=== PATIENT | female | born 1970 | race Caucasian/White ===

== ENCOUNTER 2020-04-29 06:42 | Inpatient (IN) ==
--- NOTE | 2020-04-17 16:29 | PAT Medication Instructions ---
Medication Instructions Date of Service April 17, 2020 Home Medications Cholesterol Plus 1,800 mg PO QAM calcium 1,000 mg PO QAM cholecalciferol (vitamin D3) 125 mcg PO QAM coQ10 (ubiquinol) 200 mg PO QAM cyanocobalamin (vitamin B-12) 1,000 mcg PO QAM diclofenac sodium 2 g TOPICAL QID PRN loratadine [Claritin] 10 mg PO QAM red yeast rice 600 mg PO QAM turmeric-herbal complex no.278 1 cap PO QAM ASK your surgeon for instructions diclofenac sodium 2 g TOPICAL QID PRN STOP taking 2 weeks before surgery If surgery is within 2 weeks, stop taking as soon as possible. Cholesterol Plus 1,800 mg PO QAM coQ10 (ubiquinol) 200 mg PO QAM red yeast rice 600 mg PO QAM turmeric-herbal complex no.278 1 cap PO QAM DO NOT take the morning of surgery calcium 1,000 mg PO QAM cholecalciferol (vitamin D3) 125 mcg PO QAM cyanocobalamin (vitamin B-12) 1,000 mcg PO QAM loratadine [Claritin] 10 mg PO QAM Other Notes Nothing to eat or drink after midnight. If you have any questions please call us at [phone] or [phone] or [phone] or [phone]
--- NOTE | 2020-04-18 12:43 | Anesthesiology Consultation ---
Date of Service April 18, 2020 Assessment & Plan (1) Encounter for pre-operative examination: COVID Status: As of 04/18 assessment, patient denies travel to endemic area, known exposure/sick contacts, or symptoms of COVID19. Patient instructed that they and their household members must follow strict social distancing guidelines, wear a mask in public and avoid travel/events/gatherings for 14 days prior to surgery. Preoperative COVID19 testing to be completed prior to surgery per surgeon's arrangements (04/24). Patient made aware to self-isolate as much as possible between COVID testing and surgery. Patient has a SCS. Aware to bring remote to the hospital with her on DOS. H/O PONV -- scopolamine patch ordered for DOS. Chart Review Chart Review: Acceptable Risk for Surgery and Patient seen in Pre Admission T esting Teaching & Discussion Instructed NPO after midnight before surgery, except medications with 15 cc of water. Medication instructions provided according to the PAT guidelines. History Surgery Operation Date: 04/29/20 07:00 Proposed Procedures p L4-L5 Decompression fusion, L5-S1 Hardware Removal Spinal Cord Monitoring - Daniel Chaves DO Height/Weight Height: 5 ft 3 in Weight: 68.6 kg Allergies Allergy/AdvReac Type Severity Reaction Status Date / Time adhesive tape Allergy Intermediate SKIN Verified 04/14/20 11:01 IRRIATION colchicine [From Mitigare] Allergy Intermediate STOMACH Verified 04/14/20 11:00 PAIN/URINARY RETENTION duloxetine [From Cymbalta] Allergy Intermediate DIZZINES/SINUS Verified 04/14/20 11:00 DRAINAGE ibuprofen Allergy Intermediate HIVES FROM Unverified 04/14/20 11:00 ADVIL/CAN TAKE IBUPROFEN Owjidec-Juu-Oqj Reductase Allergy Intermediate FLU LIKE Verified 04/14/20 11:00 Inhibitor SYMPTOMS/MUSCLE PAIN Sulfa (Sulfonamide Allergy Intermediate FLUSHED Unverified 04/14/20 11:00 Antibiotics) cefuroxime Allergy Unknown UNKNOWN Unverified 04/14/20 11:00 Medications Home Medications Medication Instructions Recorded Confirmed Last Taken Cholesterol Plus 1,800 mg PO QAM 04/14/20 04/14/20 Unknown calcium 1,000 mg PO QAM 04/14/20 04/14/20 Unknown cholecalciferol (vitamin D3) 125 mcg PO QAM 04/14/20 04/14/20 Unknown [Vitamin D3] coQ10 (ubiquinol) 200 mg PO QAM 04/14/20 04/14/20 Unknown cyanocobalamin (vitamin B-12) 1,000 mcg PO QAM 04/14/20 04/14/20 Unknown diclofenac sodium 2 g TOPICAL QID PRN 04/14/20 04/14/20 Unknown loratadine [Claritin] 10 mg PO QAM 04/14/20 04/14/20 Unknown red yeast rice 600 mg PO QAM 04/14/20 04/14/20 Unknown turmeric-herbal complex no.278 1 cap PO QAM 04/14/20 04/14/20 Unknown Past Medical History Medical History Anxiety Degenerative disc disease Erosive (osteo)arthritis BILAT. HANDS History of asthma HX ALLERGY INDUCED ASTHMA Hyperlipidemia Osteoarthritis Sciatica Spinal cord stimulator status PAIN STIMULATOR (WILL BRING REMOTE TO PAT APT) Exercise / Class Metabolic Activity II 4-5 Yardwork/Stairs/Walk up hill Past Family History Family History (Updated 04/14/20 @ 11:13 by Marcella Mendoza RN) Other No family history of adverse response to anesthesia Past Surgical History Surgical History History of bladder surgery BLADDER SLING History of breast biopsy X 2 (BENIGN) History of carpal tunnel release LEFT History of ear surgery RT EAR "A LITTLE THING REMOVED" History of endometrial ablation History of hysterectomy History of tonsillectomy and adenoidectomy Nausea and vomiting after administration of anesthetic agent Past Anesthesia History No Hx of Anesthesia Complications (other than PONV) and No Family Hx of Anesthesia Complications History of PONV No Hx of Motion Sickness and History of PONV (after hyster and SCS implantation) Social History Smoking Status: Never smoker Do You Dip or Chew Tobacco: No Hx Alcohol Use: Yes Alcohol type: hard liquor alcohol intake frequency: a few times a month Alcohol Intake Frequency Comment: MIXED DRINKS substance use type: does not use Review of Systems Pt denies any recent chest pain, shortness of breath, palpitations, cough, fever, URI, or uncontrolled acid reflux. Physical Exam Vital Signs BP: 145/81 P: 90bpm SPO2: 99% RA T: 97.9 F R: 16 ENMT Mouth: no dental restorations, no chipped teeth and no loose teeth Thyromental Distance: < 3.5 Finger Breadths (3) Mallampati Class: III Neck normal visual inspection; neck extension not limited Respiratory normal respiratory effort, lungs clear to auscultation Cardiovascular RRR, no murmur, no edema (borderline tachy) Testing Laboratory Results 04/18/20 13:27 04/18/20 13:27 PT 10.2 Seconds (9.0-12.0) 04/18/20 13:27 INR 1.0 (0.9-1.1) 04/18/20 13:27 APTT 26.4 Seconds (21.0-31.0) 04/18/20 13:27 Urine Color Yellow 04/18/20 13:27 Urine Appearance Clear (Clear) 04/18/20 13:27 Urine pH 8.0 (4.5-7.5) H 04/18/20 13:27 Ur Specific [place] 1.015 (1.000-1.030) 04/18/20 13:27 Urine Protein Negative (Negative) 04/18/20 13:27 Urine Glucose (UA) Negative (Negative) 04/18/20 13:27 Urine Ketones Negative (Negative) 04/18/20 13:27 Urine Nitrite Negative (Negative) 04/18/20 13:27 Ur Leukocyte Esterase Negative (Negative) 04/18/20 13:27 Blood Type B Positive 04/18/20 13:27 Antibody Screen NEGATIVE 04/18/20 13:27 Electrocardiogram Date: 04/18/20 Findings: + NSR @ (77bpm) Chest X-Ray Date: 04/18/20 Findings: + NAD
--- NOTE | 2020-04-18 13:47 | XRay Report ---
XR chest Pre-admission PA/Lat CLINICAL HISTORY: Preoperative evaluation. COMPARISON STUDY: Chest radiograph October 26, 2013. FINDINGS: Incidental note is made of spinal electrodes. Lung volumes are normal. Lungs are clear. The re is no pneumothorax or pleural effusion. Cardiac size is normal. Mediastinal contours are normal. T here is no evidence for pulmonary edema. IMPRESSION: No acute cardiopulmonary findings. ACT 112: Negative or not required by law. Electronically signed by: Sohail Jacobs M.D. 04/18/2020 1:46 PM
[2020-04-18 13:59] LABS: Basophils # (auto) 0.05 K/uL (0-0.2); Basophils % (auto) 0.8 %; Eosinophils # (auto) 0.04 K/uL (0-0.5); Eosinophils % (auto) 0.7 %; Hematocrit (blood only) 39.6 % (37-47); Hemoglobin 13.5 g/dL (12.0-16.0); Lymphocytes # (auto) 1.73 K/uL (1.2-3.4); Lymphocytes % (auto) 29.1 %; Mean Corpuscular Hemoglobin 30.4 pg (25-34); Mean Corpuscular Hgb Conc 34.1 g/dL (32-36); Mean Corpuscular Volume 89.2 fL (80-100); Mean Platelet Volume 9.5 fL (7.4-10.4); Monocytes # (auto) 0.39 K/uL (0.11-0.59); Monocytes % (auto) 6.6 %; Neutrophils # (auto) 3.74 K/uL (1.4-6.5); Neutrophils % (auto) 62.8 %; Platelet Count 345 K/uL (130-400); RDW Coefficient of Variation 12.7 % (11.5-14.5); RDW Standard Deviation 41.5 fL (36.4-46.3); Red Blood Count 4.44 M/uL (4.2-5.4); White Blood Count 5.95 K/uL (4.8-10.8)
--- NOTE | 2020-04-18 14:06 | Electrocardiogram Report ---
Test Reason : Blood Pressure : / mmHG Vent. Rate : 077 BPM Atrial Rate : 077 BPM P-R Int : 144 ms QRS Dur : 088 ms QT Int : 374 ms P-R-T Axes : 059 080 058 degrees QTc Int : 423 ms Normal sinus rhythm Normal ECG When compared with ECG of 26-OCT-2013 10:19, No significant change was found Confirmed by Rory Najera ([id number]) on 04/18/2020 2:06:11 PM Referred By: Daniel Chaves Confirmed By:Rory Najera
[2020-04-18 14:08] LABS: Partial Thromboplastin Time 26.4 Seconds (21.0-31.0); Prothrombin Time 10.2 Seconds (9.0-12.0)
[2020-04-18 14:09] LABS: BUN Creatinine Ratio 10.1 (10-20); Calcium 9.7 mg/dl (8.5-10.1); Creatinine Clr Calc Pharmacy 77.3 ml/min; Est GFR (African American) 98.9; Est GFR (Non-African American) 85.4; Potassium 4.3 mmol/L (3.5-5.1)
[2020-04-18 15:45] LABS: Appearance Urine Clear (Clear); Bilirubin Urine Negative (Negative); Blood Urine Negative (Negative); Color Urine Yellow; Glucose Urine UA Negative (Negative); Ketones Urine Negative (Negative); Leukocyte Esterase Urine Negative (Negative); Nitrite Urine Negative (Negative); Protein Urine Negative (Negative); Specific Gravity Urine 1.015 (1.000-1.030); Urobilinogen Urine Negative (Negative)
[~2020-04-29 06:42] MED LIST: ACETAMINOPHEN 500 MG TAB PO SCH; CLINDAMYCIN 600 MG/54 ML BAG IV SCH; CeleBREX 200 MG CAP PO SCH; GABAPENTIN 900 MG DOSE PO SCH; SCOPOLAMINE 1 MG TDSY TD SCH; ceFAZolin 1000MG 1,000 MG/7.5 ML SYR IV SCH
--- NOTE | 2020-04-29 08:01 | History & Physical Bridge Note ---
Date of Service April 29, 2020 History & Physical Bridge Note I have examined the patient, reviewed the History & Physical and in the interval since the performance of the History & Physical I have noted the following changes of clinical significance: no changes noted
--- NOTE | 2020-04-29 08:02 | History & Physical Report ---
Date of Service April 29, 2020 Assessment & Plan (1) Neurogenic claudication due to lumbar spinal stenosis: Admission and Anticipated Discharge Date Admission Date: L4-5 decompression fusion, L5-S1 hardware removal History of Present Illness Chief Complaint: Chronic back and bilateral leg pain Primary Care Provider: Neftali Driver DO This is a 49-year-old female who presents with chronic back and bilateral leg pain. After failing course of nonoperative care she is here for surgical invention. Allergies Allergy/AdvReac Type Severity Reaction Status Date / Time adhesive tape Allergy Intermediate SKIN Verified 04/29/20 07:10 IRRIATION colchicine [From Mitigare] Allergy Intermediate STOMACH Verified 04/29/20 07:10 PAIN/URINARY RETENTION duloxetine [From Cymbalta] Allergy Intermediate DIZZINES/SINUS Verified 04/29/20 07:10 DRAINAGE ibuprofen Allergy Intermediate HIVES FROM Unverified 04/29/20 07:10 ADVIL/CAN TAKE IBUPROFEN Ohelung-Ewy-Grm Reductase Allergy Intermediate FLU LIKE Verified 04/29/20 07:10 Inhibitor SYMPTOMS/MUSCLE PAIN Sulfa (Sulfonamide Allergy Intermediate FLUSHED Unverified 04/29/20 07:10 Antibiotics) cefuroxime Allergy Unknown UNKNOWN Unverified 04/29/20 07:10 Home Medications Medication Instructions Recorded Confirmed Type Cholesterol Plus 1,800 mg PO QAM 04/14/20 04/29/20 History calcium 1,000 mg PO QAM 04/14/20 04/29/20 History cholecalciferol (vitamin D3) 125 mcg PO QAM 04/14/20 04/29/20 History [Vitamin D3] coQ10 (ubiquinol) 200 mg PO QAM 04/14/20 04/29/20 History cyanocobalamin (vitamin B-12) 1,000 mcg PO QAM 04/14/20 04/29/20 History diclofenac sodium 2 g TOPICAL QID PRN 04/14/20 04/29/20 History loratadine [Claritin] 10 mg PO QAM 04/14/20 04/29/20 History red yeast rice 600 mg PO QAM 04/14/20 04/29/20 History turmeric-herbal complex no.278 1 cap PO QAM 04/14/20 04/29/20 History docusate calcium [Stool Softener 240 mg PO BID 04/29/20 04/29/20 History (docusate breezy)] Past Med/Surg History Medical History Anxiety Degenerative disc disease Erosive (osteo)arthritis BILAT. HANDS History of asthma HX ALLERGY INDUCED ASTHMA Hyperlipidemia Osteoarthritis Sciatica Spinal cord stimulator status PAIN STIMULATOR (WILL BRING REMOTE TO ALLA GARCIA) Surgical History History of bladder surgery BLADDER SLING History of breast biopsy X 2 (BENIGN) History of carpal tunnel release LEFT History of ear surgery RT EAR "A LITTLE THING REMOVED" History of endometrial ablation History of hysterectomy History of tonsillectomy and adenoidectomy Nausea and vomiting after administration of anesthetic agent Family History (Updated 04/14/20 @ 11:13 by Marcella Mendoza RN) Other No family history of adverse response to anesthesia Social History Smoking Status: Never smoker Second Hand Exposure: Yes ( A CHILD); Do You Dip or Chew Tobacco: No; Hx Alcohol Use: Yes Alcohol type: hard liquor Preferred Language: Gu[place]ian Break Off Worker Required: No Beliefs That Will Affect Care: None Current Living Situation: Spouse Feels Safe at Home: Yes Safety Concerns: Feels Safe At This Time Assistive Devices: Contacts and Glasses Physical Exam Physical Exam: Patient is alert and oriented Heart regular in rhythm Lungs clear to auscultation Results & Data ([facility]) Vital Signs (Past 12 Hours) Vital Signs Temp Pulse Resp BP Pulse Ox 04/29/20 07:15 37 C 99 H 16 157/94 H 99
[2020-04-29] MEDS ORDERED: CLINDAMYCIN 600 MG/54 ML D5W IV ONE (08:08)
[2020-04-29] MEDS ORDERED: HYDROmorphone INJ 2 MG/ML SYR/VIAL IV PRN (08:09)
[2020-04-29] MEDS ORDERED: ONDANSETRON INJ 2 MG/ML 2 ML VIAL IV PRN ×2 (08:09→11:54)
[2020-04-29] MEDS ORDERED: ePHEDrine sulfate 50 MG/ML AMP IV PRN (08:09)
[2020-04-29] MEDS ORDERED: PROMETHAZINE HCL 12.5 MG in SODIUM CHLORIDE 0.9% 50 ML IV PRN ×2 (08:09→11:54)
[2020-04-29] MEDS ORDERED: ATROPINE SULFATE 0.1 MG/ML 10ML SYR IV PRN (08:09)
[2020-04-29] MEDS ORDERED: fentaNYL citrate 100 MCG/2 ML VIAL IV PRN (08:09)
[2020-04-29] MEDS ORDERED: MIDAZOLAM HCL 1 MG/ML 2ML VIAL ONE (08:20)
[2020-04-29] MEDS ORDERED: fentaNYL citrate 100 MCG/2 ML VIAL ONE (08:20)
[2020-04-29] MEDS ORDERED: PROPOFOL IV EMULSION 10 MG/ML 20 ML VIAL IV ONE (08:21)
[2020-04-29] MEDS ORDERED: ONDANSETRON INJ 2 MG/ML 2 ML VIAL ONE (08:21)
[2020-04-29] MEDS ORDERED: ROCURONIUM BROMIDE 10 MG/ML 5 ML VIAL IV ONE (08:21)
[2020-04-29] MEDS ORDERED: BACITRACIN INJ 50,000 UNIT VIAL ONE (08:21)
[2020-04-29] MEDS ORDERED: LIDOCAINE HCL 2% 2 ML VIAL/AMP(20MG/ML) INFIL ONE (08:21)
[2020-04-29] MEDS ORDERED: BUPIVACAINE/EPINEPHRINE 0.5% MPF 1:200,000 30 ML VIAL ONE (08:21)
[2020-04-29] MEDS ORDERED: DEXAMETHASONE SOD INJ 4 MG/ML VIAL ONE (08:22)
[2020-04-29] MEDS ORDERED: HYDROmorphone INJ 2 MG/ML SYR/VIAL ONE (09:30)
[2020-04-29] MEDS ORDERED: LACTATED RINGER'S 1,000 ML IV SCH (09:30)
[2020-04-29] MEDS ORDERED: METOCLOPRAMIDE HCL INJ 5 MG/ML 2 ML VIAL ONE (09:35)
[2020-04-29] MEDS ORDERED: diphenhydrAMINE 50 MG/ML VIAL ONE (09:36)
[2020-04-29] MEDS ORDERED: NEOSTIGMINE METHYLSULFATE 1 MG/ML 10ML VIAL ONE (10:02)
[2020-04-29] MEDS ORDERED: ePHEDrine sulfate 50 MG/ML AMP ONE (10:02)
[2020-04-29] MEDS ORDERED: PHENYLEPHRINE HCL 10 MG/ML VIAL ONE (10:02)
[2020-04-29] MEDS ORDERED: GLYCOPYRROLATE 0.2 MG/ML VIAL ONE (10:02)
[2020-04-29] MEDS ORDERED: SODIUM CHLORIDE 0.9% INJ 10 ML VIAL ONE (10:02)
--- NOTE | 2020-04-29 10:21 | Operative Report ---
Post Operative Report Pre & Post Diagnosis Operation Date: 04/29/20 08:20 Pre-Op Diagnosis: Neurogenic claudication due to lumbar spinal stenosis L4-5 Spondylolisthesis L4-5 Post-Op Diagnosis: Neurogenic claudication due to lumbar spinal stenosis L4-5 Spondylolisthesis L4-5 I identified the patient and participated in the time-out.: Yes Procedure Operation Date: 04/29/20 08:20 Actual procedure #1 removal of instrumentation L5-S1. #2 exploration of fusion L5 extremity #3 lumbar decompression with bilateral medial facetectomies and foraminotomies L3-4 and L4-5 per #4 posterior spinal fusion L4-5. #5 placement of posterior instrumentation L4-5 per #6 interbody fusion L4-5 per #7 placement peek cage 10 x 22 mm at L4-5 per #8 placement of locally harvested morselized autograft in the posterior gutters. #9 placement infuse collagen sponge, master graft in the posterior lateral gutters and ostial amp interbody space. Surgeon Daniel Chaves, Casing In Line Setter Eladia Menendez Estimated Blood Loss 100 Findings Consistent with Post-Op Diagnosis Specimens None Indications This is a 49-year-old female who presents with above-mentioned diagnosis after failing course of nonoperative care she is here for surgical invention. Description of Procedure Patient was met with identified informed consent obtained. Patient was then taken to the operative suite underwent a patient placed in a prone position Mushtaq table top Ramses frame. All bony prominences well-padded eyes inspected to ensure no external pressure placed upon the. This point the lumbar spine was prepped and draped in a sterile fashion. Sharp dissection with the assistance of Bovie cautery was performed down to and exposing the lamina and transverse processes of L4 and the instrumentation at L5 and S1 levels bilaterally. Then proceeded to remove the hardware bilaterally exploring the fusion mass noting it to be mature and intact. Then performed a complete laminectomy of L4 partial laminectomy of L3 including bilateral medial facetectomies and foraminotomies addressing severe spinal stenosis. Pedicle screws were then placed in L4 and L5 bilaterally with the assistance of fluoroscopy and appropriately sized niecy placed. By way of a transforaminal approach and left complete discectomy was performed endplates curetted to subcortical bleeding bone and a 10 x 22 mm peek cage filled with osteobone graft tapped in position. The rods were then locked into final position bilaterally. The transverse processes of L4 and L5 burred to subcortical bleeding bone. Infuse collagen sponge master graft local autograft was placed in the posterior lateral gutters. 15 round JULIAN drain inserted. The incision was then closed with 1 Vicryl to fascia 2-0 Vicryl subcutaneously and 4 Monocryl for final skin closure. Steri-Strip sterile dressings placed. Patient will continue PACU stable condition. Please note spinal cord monitoring was utilized at the procedure no changes noted. Lastly Eladia Menendez was present throughout the entire procedure involved in patient positioning complex portions of the surgery and final skin closure. I attest to the content of the Intraoperative Record and any orders documented therein. Any exceptions are noted below.
--- NOTE | 2020-04-29 10:27 | Fluoroscopy Report ---
FL lumbar spine 2-3V CLINICAL HISTORY: L4-L5 DECOMP/FUSION L5-S1 HW REMOVAL COMPARISON STUDY: Lumbar spine CT April 24, 2020. FLUOROSCOPY TIME: 12 seconds. FLUOROSCOPIC IMAGES: 2 FINDINGS: Previous L5-S1 discectomy with interbody spacer placement as noted. The previous hardware a t the L5 and S1 levels has been removed. Interval L4-L5 discectomy with interbody spacer placement as noted. There is a posterior decompression with bilateral pedicle screws at the L4 and L5 levels. The hardware is intact. IMPRESSION: Hardware removal. Interval L4-L5 discectomy, posterior decompression and bilateral pedicl e screw fusion. ACT 112: Negative or not required by law. Electronically signed by: Sohail Jacobs M.D. 04/29/2020 10:26 AM
[2020-04-29] MEDS ORDERED: FLOSEAL HEMOSTATIC MATRIX 10ML TOP ONE (11:40)
[2020-04-29] MEDS ORDERED: diphenhydrAMINE Capsule 25 MG CAP PO PRN (11:54)
[2020-04-29] MEDS ORDERED: FAMOTIDINE 20 MG TAB PO PRN (11:54)
[2020-04-29] MEDS ORDERED: HYDROmorphone INJ 1 MG/ML SYRINGE IV PRN (11:54)
[2020-04-29] MEDS ORDERED: ONDANSETRON 4 MG OD TAB PO PRN (11:54)
[2020-04-29] MEDS ORDERED: DO NOT ADMINISTER PNEUMOCOCCAL VACCINE PRN (11:54)
[2020-04-29] MEDS ORDERED: DO NOT ADMINISTER FLU VACCINE PRN (11:54)
[2020-04-29] MEDS ORDERED: HYDROmorphone INJ 0.5 MG/0.5 ML SYR IV PRN (11:54)
[2020-04-29] MEDS ORDERED: hydrOXYzine HCl 25 MG TAB PO PRN (11:54)
[2020-04-29] MEDS ORDERED: traMADol HCL 50 MG TABLET PO PRN (11:54)
[2020-04-29] MEDS ORDERED: ALUMINUM/MAGNESIUM SUSP 30 ML UDC PO PRN (11:54)
[2020-04-29] MEDS ORDERED: SOD PHOSPHATE/SOD BIPHOSPHATE ENEMA 132 ML BTL PR PRN (11:54)
[2020-04-29] MEDS ORDERED: ACETAMINOPHEN 500 MG TAB PO PRN (11:54)
[2020-04-29] MEDS ORDERED: NALOXONE HCL 0.4 MG/1 ML VIAL/CARP IV PRN (11:54)
[2020-04-29] MEDS ORDERED: MAGNESIUM HYDROXIDE SUSP 30 ML UDC PO PRN (11:54)
[2020-04-29] MEDS ORDERED: LORazepam 0.5 MG TAB PO PRN (11:54)
[2020-04-29] MEDS ORDERED: METOCLOPRAMIDE HCL INJ 5 MG/ML 2 ML VIAL IV PRN (11:54)
[2020-04-29] MEDS ORDERED: ACETAMINOPHEN 1,000 MG/100 ML VIAL IV PRN (11:54)
[2020-04-29] MEDS ORDERED: LORazepam 0.5 MG/1 ML VIAL IV PRN (11:54)
--- NOTE | 2020-04-29 11:57 | Anesthesiology Progress Note ---
Date of Service April 29, 2020 Anesthesia Post Procedure Vital Signs Vital Signs: Temp Pulse Pulse Resp BP Pulse Ox 04/29/20 11:35 87 15 129/72 95 04/29/20 11:20 86 16 128/67 94 04/29/20 11:05 36.1 C L 99 H 14 136/77 97 04/29/20 10:55 79 16 130/77 100 04/29/20 10:45 76 18 119/68 98 04/29/20 10:36 36.1 C L 88 16 118/72 95 04/29/20 07:15 37 C 99 H 16 157/94 H 99 Pain Intensity Posterior Back: Pain Intensity: 7 Transfer of Care Handoff Completed per policy Notes Mental Status: alert / awake / arousable and participated in evaluation Patient Amnestic to Procedure: Yes Nausea / Vomiting: adequately controlled Pain: adequately controlled Airway Patency, RR, SpO2: stable & adequate BP & HR: stable & adequate Hydration State: stable & adequate Anesthetic Complications: no major complications apparent and Pt Satisfied with anesthetic care
[2020-04-29] MEDS: LACTATED RINGER'S 1,000 ML IV SCH (14:06)
[2020-04-29] MEDS: KETOROLAC TROMETHAMINE 15 MG/ML VIAL IV SCH ×2 (14:06→20:28)
--- NOTE | 2020-04-29 14:47 | Internal Medicine Consult Note ---
Date of Consultation April 29, 2020 Assessment & Plan (1) Spondylolisthesis of lumbar region: Impression: Pleasant 49-year-old female with a failed conservative treatment for L4-L5 spondylolisthesis with mild stenosis. She underwent elective L4-L5 discectomy with fusion and cage insertion today with Dr. Chaves. 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 She denies any shortness of breath or wheezes No bronchospasm appreciated on exam The patient does develop bronchospasm or shortness of breath would prescribe duo nebs every 3 hours as needed No indication for empiric treatment at this time (4) Neurogenic claudication due to lumbar spinal stenosis: Hopefully this is resolved secondary to the surgery At this time it does not appear the patient is on any outpatient gabapentin PPMP reviewed -2 prescriptions one for Hycodan 02/10/2020 and 1 for OxyContin 12/12/2018 Further pain management per orthopedics (5) DVT prophylaxis: No chemical prophylaxis secondary to acute surgery of lumbar region of the spine Consider KAYLIE duran and SCDs while inpatient Increase ambulation per orthopedic orders Thank you very much for including us in the care of this patient. Please refer to Dr. Coker's addendum for further recommendations and corrections Supervising Physician Co-Signing Physician Notes History and physical exam performed History as detailed by Dudley Samano, notable for 49 year old woman with h/o DDD, HLD who had elective L4-5 fusion today after failed conservative therapy. Physical exam notable for grogginess (still recovering from anesthesia) but able to answer questions appropriately, clean dressing over surgical site with drain in situ. -Neurogenic claudication due to lumbar spinal stenosis S/P L4-5 decompression fusion , hardware removal today Pain control per primary ortho team Get CBC in AM Asthma currently stable Reports hyperlipidemia and h/o statin intolerance Agree with other plans as detailed above Thank you for the consult. Will continue to follow with you while inpatient History of Present Illness Reason for Consultation: Medical management Attending Physician: Daniel Chaves DO History of Present Illness Attending: Dr. Coker This is a 49-year-old female. She has a past medical history of degenerative disc disease, hyperlipidemia, seasonal allergies, allergy induced asthma. She denies any history of tobacco abuse, hypertension, COPD, emphysema, cardiopulmonary disease, kidney disease. Surgical history includes recent hysterectomy with unilateral salpingo-oophorectomy. The patient states that she has had ongoing problems with back pain. She has been following with Dr. Chaves after failing conservative treatment with anti- inflammatories, muscle relaxants, and physical therapy. She was scheduled for e lective surgery and underwent L4-L5 fusion with cage placement today. She had an EBL of 100 mL. She had no significant complications with her surgery. She states that this time that her pain is generally controlled. She has no shortness of breath. No chest pain. No difficulty with breathing. She denies any abdominal pain. She has no recent illness. She tested negative for COVID- 19 prior to her surgery. She is still quite groggy from anesthesia but otherwise has no acute complaints. Allergies Allergy/AdvReac Type Severity Reaction Status Date / Time adhesive tape Allergy Intermediate SKIN Verified 04/29/20 07:10 IRRIATION colchicine [From Mitigare] Allergy Intermediate STOMACH Verified 04/29/20 07:10 PAIN/URINARY RETENTION duloxetine [From Cymbalta] Allergy Intermediate DIZZINES/SINUS Verified 04/29/20 07:10 DRAINAGE ibuprofen Allergy Intermediate HIVES FROM Unverified 04/29/20 07:10 ADVIL/CAN TAKE IBUPROFEN Yshyliz-Wmb-Fsf Reductase Allergy Intermediate FLU LIKE Verified 04/29/20 07:10 Inhibitor SYMPTOMS/MUSCLE PAIN Sulfa (Sulfonamide Allergy Intermediate FLUSHED Unverified 04/29/20 07:10 Antibiotics) cefuroxime Allergy Unknown UNKNOWN Unverified 04/29/20 07:10 Home Medications Medication Instructions Recorded Confirmed Type Cholesterol Plus 1,800 mg PO QAM 04/14/20 04/29/20 History calcium 1,000 mg PO QAM 04/14/20 04/29/20 History cholecalciferol (vitamin D3) 125 mcg PO QAM 04/14/20 04/29/20 History [Vitamin D3] coQ10 (ubiquinol) 200 mg PO QAM 04/14/20 04/29/20 History cyanocobalamin (vitamin B-12) 1,000 mcg PO QAM 04/14/20 04/29/20 History diclofenac sodium 2 g TOPICAL QID PRN 04/14/20 04/29/20 History loratadine [Claritin] 10 mg PO QAM 04/14/20 04/29/20 History red yeast rice 600 mg PO QAM 04/14/20 04/29/20 History turmeric-herbal complex no.278 1 cap PO QAM 04/14/20 04/29/20 History docusate calcium [Stool Softener 240 mg PO BID 04/29/20 04/29/20 History (docusate breezy)] Patient History Medical History (Updated 04/29/20 @ 15:21 by Dudley Ramirez PA-C) Anxiety Degenerative disc disease Erosive (osteo)arthritis BILAT. HANDS History of asthma HX ALLERGY INDUCED ASTHMA Hyperlipidemia Osteoarthritis Sciatica Spinal cord stimulator status PAIN STIMULATOR (WILL BRING REMOTE TO [facility]) Surgical History (Updated 04/29/20 @ 15:29 by Dudley Ramirez PA-C) H/O hysterectomy with unilateral oophorectomy History of bladder surgery BLADDER SLING History of breast biopsy X 2 (BENIGN) History of carpal tunnel release LEFT History of ear surgery RT EAR "A LITTLE THING REMOVED" History of endometrial ablation History of tonsillectomy and adenoidectomy Nausea and vomiting after administration of anesthetic agent S/P insertion of spinal cord stimulator Family History Other No family history of adverse response to anesthesia Social History Smoking Status: Never smoker Second Hand Exposure: Yes ( A CHILD); Do You Dip or Chew Tobacco: No; Hx Alcohol Use: No Hx Substance Use: No Preferred Language: French Communication Ability: Effective Cigar Packing Examiner Required: No Beliefs That Will Affect Care: None marital status: Current Living Situation: Spouse Other Information That Helps Us Care for You: No Feels Safe at Home: Yes Safety Concerns: Feels Safe At This Time Assistive Devices: None Review of Systems Review of Systems: All systems reviewed & are unremarkable except as noted in HPI & below Physical Exam Physical Exam: GENERAL : No acute distress. Somewhat groggy. Answers questions appropriately. EYES: No icterus, gaze conjugate NOSE: No evidence of epistaxis MOUTH: No lesions or candidiasis NECK: Supple LUNGS: CTA B/L, no wheezes, rales or rhonchi HEART: Regular, rate controlled ABDOMEN: Soft, NT, ND, BS Present EXTREMITIES: No LE edema, pedal pulses intact NEURO: A&OX3. Able to move bilateral feet and toes. Good tactile sensation of lower extremities. Results & Data ([facility]) Vital Signs (Past 12 Hours) Vital Signs Temp Pulse Pulse Resp BP Pulse Ox 04/29/20 13:58 35.6 C L 88 16 126/77 93 04/29/20 12:50 36.3 C L 73 16 106/66 96 04/29/20 12:20 36.3 C L 92 H 16 122/80 93 04/29/20 12:02 36.3 C L 81 16 127/80 93 04/29/20 11:54 36.3 C L 88 16 127/80 93 04/29/20 11:35 87 15 129/72 95 04/29/20 11:20 86 16 128/67 94 04/29/20 11:05 36.1 C L 99 H 14 136/77 97 04/29/20 10:55 79 16 130/77 100 04/29/20 10:45 76 18 119/68 98 04/29/20 10:36 36.1 C L 88 16 118/72 95 04/29/20 07:15 37 C 99 H 16 157/94 H 99 Laboratory Results 04/18/20 13:27 04/18/20 13:27 Diagnostic Findings FL lumbar spine 2-3V CLINICAL HISTORY: L4-L5 DECOMP/FUSION L5-S1 HW REMOVAL COMPARISON STUDY: Lumbar spine CT April 24, 2020. FLUOROSCOPY TIME: 12 seconds. FLUOROSCOPIC IMAGES: 2 FINDINGS: Previous L5-S1 discectomy with interbody spacer placement as noted. The previous hardware at the L5 and S1 levels has been removed. Interval L4-L5 discectomy with interbody spacer placement as noted. There is a posterior decompression with bilateral pedicle screws at the L4 and L5 levels. The hardware is intact. IMPRESSION: Hardware removal. Interval L4-L5 discectomy, posterior decompression and bilateral pedicle screw fusion. Electronically signed by: Sohail Jacobs M.D. 04/29/2020 10:[address] lumbar spine wo con CT DOSE: 656.21 mGy.cm CLINICAL HISTORY: LUMBAR ADJACENT SEGMENT DISEASE,SPONYLOLITHESIS BACK PAIN TECHNIQUE: Helical images were acquired in transverse plane. Reformatted sagittal and coronal images were reviewed. A dose lowering technique was utilized adhering to the principles of ALARA. CONTRAST: No contrast was administered COMPARISON STUDY: X-ray study dated 11/02/2013 FINDINGS: A radiopaque densities visualized at the T11 level within the abdomen, are incompletely evaluated but likely representing pill fragments. There is visualization of a spinal electrode which enters the canal at the T12- L1 level. L1-2 level: There is no evidence of significant disc bulge or focal herniation. There is no evidence of spinal or foraminal stenosis. L2-3 level: There is no evidence of significant disc bulge or focal herniation. There is no evidence of spinal or foraminal stenosis. L3-4 level: There is a minimal circumferential disc bulge. There is no significant spinal or foraminal stenosis L4-5 level: There is marked desiccation of the disc. There is a grade 1 spondylolisthesis of L4 and L5. There is discogenic and plate sclerosis. An L5 posterior laminectomy. There is mild spinal canal narrowing. There is no significant foraminal narrowing. L5-S1 level: There are postsurgical changes of a discectomy and interbody fusion. There are postlaminectomy changes. There is post surgical changes of a fusion with posterior pedicle screw fixation. The S1 pedicle screws extend anterior to the anterior cortex of the S1 vertebra bilaterally. IMPRESSION: 1. Postsurgical changes of discectomy, interbody fusion, and posterior laminectomy and spinal fusion at the L5-S1 level 2. Marked disc degeneration at the L4-5 level. Grade 1 spondylolisthesis of L4 on L5. Mild spinal canal narrowing. 3. No acute fractures identified. Electronically signed by: Darrin Zambrano M.D. 04/24/2020 8:28 AM
[2020-04-29] MEDS: CLINDAMYCIN 600 MG in DEXTROSE 5% 50 ML IV SCH ×2 (15:28→23:46)
[2020-04-29] MEDS: DOCUSATE SODIUM/SENNA 50/8.6MG TAB PO SCH (20:29)
[2020-04-30] MEDS: LACTATED RINGER'S 1,000 ML IV SCH (01:59)
[2020-04-30] MEDS: KETOROLAC TROMETHAMINE 15 MG/ML VIAL IV SCH ×2 (02:01→09:07)
[2020-04-30 06:04] LABS: Basophils # (auto) 0.01 K/uL (0-0.2); Basophils % (auto) 0.1 %; Eosinophils # (auto) 0.02 K/uL (0-0.5); Eosinophils % (auto) 0.2 %; Hematocrit (blood only) 28.1 % (37-47); Hemoglobin 9.5 g/dL (12.0-16.0); Immature Granulocytes # (auto) 0.03 K/uL (0.00-0.02); Immature Granulocytes % (auto) 0.3 %; Lymphocytes # (auto) 2.56 K/uL (1.2-3.4); Lymphocytes % (auto) 23.7 %; Mean Corpuscular Hgb Conc 33.8 g/dL (32-36); Mean Corpuscular Volume 88.6 fL (80-100); Mean Platelet Volume 9.4 fL (7.4-10.4); Monocytes # (auto) 0.94 K/uL (0.11-0.59); Monocytes % (auto) 8.7 %; Neutrophils # (auto) 7.23 K/uL (1.4-6.5); Platelet Count 228 K/uL (130-400); RDW Coefficient of Variation 12.5 % (11.5-14.5); RDW Standard Deviation 40.7 fL (36.4-46.3); Red Blood Count 3.17 M/uL (4.2-5.4); White Blood Count 10.79 K/uL (4.8-10.8)
[2020-04-30 06:46] LABS: BUN Creatinine Ratio 16.8 (10-20); Creatinine Clr Calc Pharmacy 106.2 ml/min; Est GFR (African American) 123.7; Est GFR (Non-African American) 106.7; Potassium 3.7 mmol/L (3.5-5.1)
[2020-04-30] MEDS ORDERED: [UNRECOGNIZED DRUG - OTHER] PO SCH (09:00)
[2020-04-30] MEDS ORDERED: NON-FORMULARY MEDICATION (Coq10 (Ubiquinol) 200 mg Capsule) PO SCH (09:00)
[2020-04-30] MEDS: LORATADINE 10 MG TAB PO SCH (09:07)
[2020-04-30] MEDS: CHOLECALCIFEROL 1,000 UNITS 25 MCG TAB PO SCH (09:08)
[2020-04-30] MEDS: CYANOCOBALAMIN 500 MCG TABLET (VITAMIN B-12) PO SCH (09:08)
[2020-04-30] MEDS: CALCIUM CARBONATE 500 MG CHEWABLE TAB PO SCH (09:09)
--- NOTE | 2020-04-30 09:33 | Hospitalist Progress Note ---
Date of Service April 30, 2020 Assessment & Plan (1) Spondylolisthesis of lumbar region: (2) Neurogenic claudication due to lumbar spinal stenosis: S/P L4-5 decompression fusion , hardware removal postop day 1 Pain controlled Surgical site management and JULIAN drain management per primary orthopedic team Acute anemia likely blood loss anemia during surgery plus dilutional from IV fluids. Hemoglobin is 9.5 today [was 13.5 on 04/18/2020]. Got 3 L in the past 24 hours Monitor hemoglobin. (3) Hyperlipidemia: Reported intolerance to statins Continue follow-up with PCP outpatient for continued management (4) History of asthma: Stable (5) DVT prophylaxis: SCD Admission and Anticipated Discharge Date Admission Date: April 29, 2020 Subjective Patient seen and examined Reports pain at surgical site but states that this is well controlled on current regimen. Denies any nausea, vomiting Has started passing flatus. Yet to move her bowels Denies any abdominal pain Physical Exam Constitutional: WD/WN, vitals as above + well hydrated; no acute distress Eyes: PERRL, conjunctivae normal, anicteric sclerae ENMT: external ear and nose normal, oropharynx normal Respiratory: normal respiratory effort, lungs clear to auscultation Cardiovascular: RRR, no murmur, no edema Gastrointestinal (Abdomen): normal bowel sounds, soft, nontender, no hepatosplenomegaly Musculoskeletal: Clean dressing over surgical site with drain in situ draining serosanguineous fluid Neurologic: PERRL, EOMI, accommodation nl, no face palsy, no dysarthria Psychiatric: A+Ox3, euthymic affect Results & Data Results & Data ([facility]) Vital Signs (Past 12 Hours) Vital Signs Temp Pulse Resp BP Pulse Ox 04/30/20 06:59 36.7 C 79 16 117/70 97 04/30/20 03:24 37.1 C 98 H 16 111/65 99 04/29/20 22:52 36.9 C 93 H 14 102/59 L 99 Laboratory Results Laboratory Results - last 24 hr 04/30/20 04/30/20 05:27 05:27 WBC 10.79 RBC 3.17 L Hgb 9.5 L Hct 28.1 L MCV 88.6 MCH 30.0 MCHC 33.8 RDW Std Deviation 40.7 RDW Coeff of Saeed 12.5 Plt Count 228 MPV 9.4 Immature Gran % (Auto) 0.3 Neut % (Auto) 67.0 Lymph % (Auto) 23.7 [place] % (Auto) 8.7 Eos % (Auto) 0.2 Baso % (Auto) 0.1 Neut # (Auto) 7.23 H Lymph # (Auto) 2.56 [place] # (Auto) 0.94 H Eos # (Auto) 0.02 Baso # (Auto) 0.01 Immature Gran # (Auto) 0.03 H Sodium 136 Potassium 3.7 Chloride 104 Carbon Dioxide 27 Anion Gap 5.0 BUN 10 Creatinine 0.58 L Est Cr Clr Drug Dosing 106.2 Est GFR ( Amer) 123.7 Est GFR (Non-Af Amer) 106.7 BUN/Creatinine Ratio 16.8 Glucose 84 Calcium 8.0 L (1) Hyperlipidemia Hyperlipidemia type: unspecified Qualified Code(s): E78.5 - Hyperlipidemia, unspecified
--- NOTE | 2020-04-30 10:19 | Orthopedic Progress Note ---
Date of Service April 30, 2020 Assessment & Plan (1) Neurogenic claudication due to lumbar spinal stenosis: Admission and Anticipated Discharge Date Admission Date: April 29, 2020 At this time we will continue physical therapy monitor her JULIAN output anticipate possible discharge home tomorrow. Subjective Patient's back pain is controlled leg symptoms markedly improved. Physical Exam Physical Exam: Patient is to strength testing appears comfortable. Results & Data ([facility]) Vital Signs (Past 12 Hours) Vital Signs Temp Pulse Resp BP Pulse Ox 04/30/20 06:59 36.7 C 79 16 117/70 97 04/30/20 03:24 37.1 C 98 H 16 111/65 99 04/29/20 22:52 36.9 C 93 H 14 102/59 L 99
[2020-04-30] MEDS: POLYETHYLENE (MIRALAX) 17 GM PACK PO SCH ×3 (12:17→23:00)
[2020-04-30] MEDS: oxyCODONE HCL IR 5 MG TAB (IMMEDIATE RELEASE) PO PRN (18:37)
[2020-04-30] MEDS: DOCUSATE SODIUM/SENNA 50/8.6MG TAB PO SCH (20:37)
[2020-05-01] MEDS: POLYETHYLENE (MIRALAX) 17 GM PACK PO SCH ×2 (06:09→11:54)
[2020-05-01 06:18] LABS: Hematocrit (blood only) 31.7 % (37-47); Hemoglobin 10.8 g/dL (12.0-16.0); Mean Corpuscular Hemoglobin 30.4 pg (25-34); Mean Corpuscular Hgb Conc 34.1 g/dL (32-36); Mean Corpuscular Volume 89.3 fL (80-100); Mean Platelet Volume 9.9 fL (7.4-10.4); Platelet Count 262 K/uL (130-400); RDW Coefficient of Variation 12.5 % (11.5-14.5); RDW Standard Deviation 40.5 fL (36.4-46.3); Red Blood Count 3.55 M/uL (4.2-5.4); White Blood Count 9.42 K/uL (4.8-10.8)
[2020-05-01] MEDS: oxyCODONE HCL IR 5 MG TAB (IMMEDIATE RELEASE) PO PRN ×2 (07:31→15:14)
[2020-05-01] MEDS: CYANOCOBALAMIN 500 MCG TABLET (VITAMIN B-12) PO SCH (07:32)
[2020-05-01] MEDS: CALCIUM CARBONATE 500 MG CHEWABLE TAB PO SCH (07:32)
[2020-05-01] MEDS: LORATADINE 10 MG TAB PO SCH (07:32)
[2020-05-01] MEDS: CHOLECALCIFEROL 1,000 UNITS 25 MCG TAB PO SCH (07:32)
[2020-05-01] MEDS ORDERED: dexAMETHasone 8 MG in SYRINGE 0 ML IV SCH (09:00)
--- NOTE | 2020-05-01 09:48 | Hospitalist Progress Note ---
Date of Service May 01, 2020 Assessment & Plan (1) Spondylolisthesis of lumbar region: (2) Neurogenic claudication due to lumbar spinal stenosis: S/P L4-5 decompression fusion , hardware removal postop day 2 tolerated procedure well to be d/c home later today Pain/wound management per orthopedics Activity and therapy per orthopedic Continue bowel regimen Encourage incentive spirometry To have JULIAN drain removed later today Acute anemia likely blood loss anemia during surgery plus dilutional from IV fluids. Hemoglobin is 10.8 today [was 13.5 on 04/18/2020]. (3) Hyperlipidemia: statin intolerance low cholesterol/low fat diet Continue follow-up with PCP outpatient for continued management (4) History of asthma: no acute exac Stable (5) DVT prophylaxis: SCD Dispo: D/c home later today FULL CODE Thank you for this consultation. We will follow the patient with you during their hospital stay. You can reach a member of the [facility] Hospitalist Team 30/09 via pager @ [phone]. Patient was seen and examined in collaboration with Dr. Coker, please see addendum Admission and Anticipated Discharge Date Admission Date: April 29, 2020 Supervising Physician Co-Signing Physician Notes Patient seen and examined. 1 year old woman with h/o DDD, HLD who had elective L4-5 fusion today after failed conservative therapy. Physical exam notable for grogginess (still recovering from anesthesia) but able to answer questions appropriately, clean dressing over surgical site with drain in situ. -Neurogenic claudication due to lumbar spinal stenosis S/P L4-5 decompression fusion , hardware removal POD#2 Patient being planned to discharged today per Primary Surgical team Hb is stable Care coordinated with Albertina eRza PA-C. Agree with other plans as documented above Subjective Pt seen and examined in room 305-1. Follow up lumbar surgery and ABL anemia. Pt overall feels well this morning. Small BM this morning, "I'm having difficulty with that." Finally passing flatus. Denies f/c/s, dizziness, lightheaded, chest pain, sob, n/v/d, abd pain. Good Appetite. Going to be discharged later today. Review of Systems Review of Systems: All systems reviewed & are unremarkable except as noted in HPI & below Physical Exam Physical Exam: Gen: WD/WN, NAD, A&O x3 HEENT: Normocephalic, atraumatic, conjunctivae moist, sclerae anicteric, mucous membranes moist. Lung: Clear to Auscultation bilaterally, no wheezes/rales/rhonchi Heart: Regular rate, regular rhythm, no murmurs, rubs, or gallops Abdomen: Soft, NT, ND +BS x 4 Extremities: No edema Skin: Warm, no rash, negative turgor. Results & Data Results & Data ([facility]) Vital Signs (Past 12 Hours) Vital Signs Temp Pulse Pulse Resp BP Pulse Ox 05/01/20 06:32 36.7 C 91 H 16 129/77 99 04/30/20 22:56 36.7 C 95 H 16 114/71 93 Laboratory Results Short CBC 05/01/20 Range/Units 05:21 WBC 9.42 (4.8-10.8) K/uL Hgb 10.8 L (12.0-16.0) g/dL Hct 31.7 L (37-47) % Plt Count 262 (130-400) K/uL Medications Administered Acetaminophen (Acetaminophen 500 Mg Tab) 1,000 mg PO Q8H PRN PRN Reason: MILD Pain Scale 1,2,3 & Pre PT Stop: 05/29/20 11:53 Last Admin: 05/01/20 06:12 Dose: 1,000 mg Documented by: [id number] Calcium Carbonate (Calcium Carbonate 500 Mg Chewable Tab) 1,000 mg PO QAM REPLACED BY [facility] Stop: 05/30/20 08:59 Last Admin: 05/01/20 07:32 Dose: 1,000 mg Documented by: [id number] Admin: 04/30/20 09:09 Dose: 1,000 mg Documented by: [id number] Cyanocobalamin (Cyanocobalamin 500 Mcg Tablet (Vitamin B-12)) 1,000 mcg PO QAM REPLACED BY [facility] Stop: 05/30/20 08:59 Last Admin: 05/01/20 07:32 Dose: 1,000 mcg Documented by: [id number] Admin: 04/30/20 09:08 Dose: 1,000 mcg Documented by: [id number] Dexamethasone Sodium Phosphate (8 mg/ Syringe) 2 mls @ 1 mls/min IV DAILY ROSELIA Stop: 05/31/20 08:59 Last Admin: 05/01/20 07:33 Dose: 1 mls/min Documented by: [id number] Loratadine (Loratadine 10 Mg Tab) 10 mg PO QAM ROSELIA Stop: 05/30/20 08:59 Last Admin: 05/01/20 07:32 Dose: 10 mg Documented by: [id number] Admin: 04/30/20 09:07 Dose: 10 mg Documented by: [id number] Ondansetron HCl (Ondansetron Inj 2 Mg/Ml 2 Ml Vial) 4 mg IV Q6H PRN PRN Reason: Nausea &/or Vomiting Stop: 05/29/20 11:53 Last Admin: 04/29/20 18:34 Dose: 4 mg Documented by: [id number] Oxycodone HCl (Oxycodone Hcl Ir 5 Mg Tab (Immediate Release)) 5 - 10 mg PO Q4H PRN PRN Reason: Pain & Pre PT Stop: 05/13/20 11:53 Last Admin: 05/01/20 07:31 Dose: 5 mg Documented by: [id number] Admin: 04/30/20 18:37 Dose: 5 mg Documented by: [id number] Polyethylene Glycol (Polyethylene (Miralax) 17 Gm Pack) 17 gm PO Q6 ROSELIA Stop: 05/30/20 11:59 Last Admin: 05/01/20 06:09 Dose: 17 gm Documented by: [id number] Admin: 04/30/20 23:00 Dose: 17 gm Documented by: [id number] Admin: 04/30/20 17:34 Dose: 17 gm Documented by: [id number] Admin: 04/30/20 12:17 Dose: 17 gm Documented by: [id number] Senna/Docusate Sodium (Docusate Sodium/Senna 50/8.6mg Tab) 2 tab PO HS ROSELIA Stop: 05/29/20 20:59 Last Admin: 04/30/20 20:37 Dose: 2 tab Documented by: [id number] Admin: 04/29/20 20:29 Dose: 2 tab Documented by: [id number] Vitamin D (Cholecalciferol 1,000 Units 25 Mcg Tab) 5,000 units PO QAM ROSELIA Stop: 05/30/20 08:59 Last Admin: 05/01/20 07:32 Dose: 5,000 units Documented by: [id number] Admin: 04/30/20 09:08 Dose: 5,000 units Documented by: [id number] Discontinued Medications Acetaminophen (Acetaminophen 500 Mg Tab) 1,000 mg PO PREOP ROSELIA Stop: 04/29/20 18:00 Last Admin: 04/29/20 07:39 Dose: 1,000 mg Documented by: [id number] Bacitracin (Bacitracin Inj 50,000 Unit Vial) Confirm Administered Dose 50,000 units .ROUTE .STK-MED ONE Stop: 04/29/20 08:22 Last Admin: 04/29/20 09:15 Dose: 50,000 units Documented by: [id number] Bupivacaine HCl/Epinephrine Bitart (Bupivacaine/Epinephrine 0.5% Mpf 1:200,000 30 Ml Vial) Confirm Administered Dose 30 ml .ROUTE .STK-MED ONE Stop: 04/29/20 08:22 Last Admin: 04/29/20 09:16 Dose: 20 ml Documented by: [id number] Celecoxib (Celebrex 200 Mg Cap) 200 mg PO PREOP REPLACED BY [facility] Stop: 04/29/20 18:00 Last Admin: 04/29/20 07:39 Dose: 200 mg Documented by: [id number] Clindamycin Phosphate (Clindamycin 600 Mg/54 Ml D5w) Confirm Administered Dose 600 mg IV .[facility]-MED ONE Stop: 04/29/20 08:09 Last Admin: 04/29/20 08:30 Dose: 600 mg Documented by: [id number] Gabapentin (Gabapentin 900 Mg Dose) 900 mg PO PREOP ROSELIA Stop: 04/29/20 18:00 Last Admin: 04/29/20 07:38 Dose: 900 mg Documented by: [id number] Lactated Ringer's (Lr) 1,000 mls @ 0 mls/hr IV .Q0M ROSELIA Stop: 04/29/20 16:00 Last Infusion: 04/29/20 08:30 Dose: 0 mls/hr Documented by: [id number] Admin: 04/29/20 07:29 Dose: 15 mls/hr Documented by: [id number] Clindamycin Phosphate (Cleocin) 600 mg in 54 mls @ 100 mls/hr IV PREOP ROSELIA Stop: 04/30/20 05:59 Last Infusion: 04/29/20 12:16 Dose: 0 mls/hr Documented by: [id number] Admin: 04/29/20 08:30 Dose: 100 mls/hr Documented by: [id number] Lactated Ringer's (Lr) 1,000 mls @ 100 mls/hr IV .Q10H ROSELIA Stop: 05/29/20 11:53 Last Infusion: 04/30/20 07:17 Dose: 0 mls/hr Documented by: [id number] Admin: 04/30/20 01:59 Dose: 100 mls/hr Documented by: [id number] Infusion: 04/30/20 00:32 Dose: 0 mls/hr Documented by: [id number] Admin: 04/29/20 14:06 Dose: 100 mls/hr Documented by: [id number] Clindamycin Phosphate 600 mg/ (Dextrose) 54 mls @ 100 mls/hr IV Q8H ROSELIA Stop: 04/30/20 00:33 Last Infusion: 04/30/20 00:32 Dose: 0 mls/hr Documented by: [id number] Admin: 04/29/20 23:46 Dose: 100 mls/hr Documented by: [id number] Infusion: 04/29/20 16:21 Dose: 0 mls/hr Documented by: [id number] Admin: 04/29/20 15:28 Dose: 100 mls/hr Documented by: [id number] Ketorolac Tromethamine (Ketorolac Tromethamine 15 Mg/Ml Vial) 15 mg IV Q6H ROSELIA Stop: 04/30/20 08:01 Last Admin: 04/30/20 09:07 Dose: 15 mg Documented by: [id number] Admin: 04/30/20 02:01 Dose: 15 mg Documented by: [id number] Admin: 04/29/20 20:28 Dose: 15 mg Documented by: [id number] Admin: 04/29/20 14:06 Dose: 15 mg Documented by: [id number] Miscellaneous ( Floseal Hemostatic Matrix 10ml) 10 ml TOP ONCE ONE Stop: 04/29/20 11:41 Last Admin: 04/29/20 10:00 Dose: 10 ml Documented by: [id number] Scopolamine (Scopolamine 1.5 Mg Tdsy) 1.5 mg TD PREOP ROSELIA Stop: 04/29/20 16:00 Last Admin: 04/29/20 07:39 Dose: 1.5 mg Documented by: [id number] (1) Hyperlipidemia Hyperlipidemia type: unspecified Qualified Code(s): E78.5 - Hyperlipidemia, unspecified
[2020-05-01] MEDS ORDERED: bisacodyL 10 MG SUPP PR PRN (10:22)
--- NOTE | 2020-05-01 12:52 | Discharge Summary ---
Date of Service May 01, 2020 Admission HPI Per Admitting Provider This is a 49-year-old female who presents with chronic back and bilateral leg pain. After failing course of nonoperative care she is here for surgical invention. Principal Diagnosis Lumbar spinal stenosis with neurogenic claudication Discharge Data Allergies Allergy/AdvReac Type Severity Reaction Status Date / Time adhesive tape Allergy Intermediate SKIN Verified 04/29/20 07:10 IRRIATION colchicine [From Mitigare] Allergy Intermediate STOMACH Verified 04/29/20 07:10 PAIN/URINARY RETENTION duloxetine [From Cymbalta] Allergy Intermediate DIZZINES/SINUS Verified 04/29/20 07:10 DRAINAGE ibuprofen Allergy Intermediate HIVES FROM Unverified 04/29/20 07:10 ADVIL/CAN TAKE IBUPROFEN [id number] Reductase Allergy Intermediate FLU LIKE Verified 04/29/20 07:10 Inhibitor SYMPTOMS/MUSCLE PAIN Sulfa (Sulfonamide Allergy Intermediate FLUSHED Unverified 04/29/20 07:10 Antibiotics) cefuroxime Allergy Unknown UNKNOWN Unverified 04/29/20 07:10 Consultations 04/29/20 11:54 Consult Case Management - Discharge Planning Routine Consult Hospitalist Routine Procedures Performed Operation Date: 04/29/20 08:20 Actual Procedures p Decompression fusion L4-5 with bone morphogenic protein, interbody cage L4-5, spinal cord monitoring(Not Applicable) - Daniel Chaves DO s hardware removal L5-S1(Not Applicable) - Daniel Chaves DO Ordered Studies 04/29/20 08:20 FL fluoroscopy <1hr Routine FL lumbar spine 2-3V Routine Hospital Course (1) Neurogenic claudication due to lumbar spinal stenosis: Patient underwent lumbar decompression fusion tolerated this well was taken to the orthopedic floor possibly. Postop day 1 she was up and ambulating progressed to postop day #2 on postop day 3 pain was well controlled JULIAN drain decreasing probably. Excellent strength testing. Subsequent discharge home. Discharge orders instructions were on the chart for further review. Total Time Total Time Spent Total Time Spent (In Minutes): 20 minutes Discharge Plan Discharge Items Patient Disposition: Home - Self-Care Reason For Visit: Other Intervertebral Disc Degeneration Lumbar Discharge Diagnosis: Lumbar spinal stenosis with neurogenic claudication Activity: As commented below Non-emergency contact: Primary Care Provider Call non-emergency contact if: you have any medication questions Follow-up/Referrals: Neftali Driver DO [Primary Care Provider] - Diet: Regular Addtl Attending Provider Instructions: ACTIVITY RECOMMENDATIONS: SELF CARE INSTRUCTIONS AFTER THORACIC/LUMBAR FUSIONS 1. You may walk to your tolerance. It is good exercise for your legs and back. Expect some back and intermittent leg aches and pains. 2. You may perform "counter-top" level activities (make a sandwich, natanael with a project, etc.). 3. No bending or lifting of more than 10 pounds or back twisting of any nature (roll like a log when turning in bed). 4. You may ride in a car for 20-30 minutes at a time. No driving until after your first visit with your doctor. 5. Frequent changes of position and restricting sitting to 30 minutes at a time will help limit the amount of back spasms and stiffness you may experience. 6. You may discontinue the use of ambulatory aids (cane, crutches, etc.) once your strength and confidence allow. 7. You may day treatment clinician/art therapist the shower and let water strike your incision when you arrive home at least once daily. Do not take a tub bath, sit in a hot tub or go into a swimming pool until after your first recheck in the office. SPECIAL CARE INSTRUCTIONS: VERY IMPORTANT TO READ AND REVIEW A. Your surgical incision has been closed with a cosmetic suture under the skin that will dissolve in about 6 weeks. In 14 days, you can use a pair of clean scissors and cut the suture that is left outside of the skin at the ends of your incision. 1. The small skin tapes can be removed 7 days after surgery if they have not fallen off by that point. 2. You may keep the wound open to air as much as possible to promote healing after post-op day number 5 unless told otherwise by your doctor. 3. If you think the wound looks like it is becoming infected (redness or worsening drainage) and/or you are experiencing fever, chill or worsening back pain and muscle spasms, contact the office so that we may evaluate you as soon as possible. B. Complications are uncommon, but please contact us if you have any signs or symptoms of: 1. wound infection (fever higher than 102.5 degrees F, redness, separation of wound, drainage, or increasing pain from the incision) 2. blood clots in legs (pain, swelling, redness and warmth in legs) 3. urinary tract infection (fever higher than 102.5 degrees F, burning upon urination or increased frequency of urination) 4. nerve problems (inability to walk on your toes or heels, numbness, loss of bowel or bladder control) 5. any other symptoms that concern you C. Please call the office at if you have any concerns or questions about your operation or recovery. D. No smoking! Smoking drastically decreases the chance of a solid fusion. E. Do not take any anti-inflammatory medications (Indocin, Advil, Motrin, Aspirin, Naprosyn, etc.) as these may inhibit the chance of a solid fusion. Tylenol is okay to take for pain. MANAGING PAIN AFTER SPINAL SURGERY 1. Narcotic medication is intended for short-term use and will be provided for surgical pain. Surgical pain usually lasts for a period of 4-6 weeks. Narcotic medication includes Percocet, Vicodin, Darvocet, Tylenol #3 or Lortab. 2. Longer-term pain is more appropriately treated with non-narcotic medication such as Tylenol ES. 3. Muscle spasm is not appropriately treated with narcotics. Muscle relaxers such as Soma, Flexeril or Skelaxin can be used along with Tylenol ES. 4. Remember that we all live with some "aches and pains". This is not unusual or uncommon after an injury or as we get older. a. Back pain is expected and may include muscle spasms for 4 to 6 weeks after surgery. The pain should gradually improve. If the pain worsens for no apparent reason, please contact the office. b. Intermittent leg pain may also be experienced and should not be concerned about unless it worsens for no apparent reason. If so, please contact the office. 5. We will provide appropriate medication within the normal guidelines of their prescribed use. We will also be very cautious and aware of potential abuse and extended duration of patients' medication needs. a. Pain medications are for your comfort and to assist with sleep and rest so that the tissue can heal. They are not provided in order to return to normal activity and should not be used through the day. To do so or worsening pain at night can result from ongoing tissue damage and development of tolerance to the prescribed medicine. 6. Please allow 2-3 days to process refills. Prescriptions will not be mailed but must be picked up at the office. FOLLOW UP VISIT: Keep your scheduled follow-up appointment. Any questions, please call the office at . Pending Studies at Discharge: No Stand-Alone Forms: [facility], Opioid Pain Management, Smoking Cessation Medications and DC Order Prescriptions: New tramadol 50 mg tablet 50 mg PO Q6H PRN (Reason: pain, moderate) Qty: 30 RF: 0 oxycodone 5 mg tablet 5 mg PO Q6H PRN (Reason: pain, severe) Qty: 30 RF: 0 Continued calcium 500 mg Tablet 1,000 mg PO QAM RF: 0 cyanocobalamin (vitamin B-12) 1,000 mcg Tablet 1,000 mcg PO QAM RF: 0 loratadine [Claritin] 10 mg Tablet 10 mg PO QAM RF: 0 red yeast rice 600 mg Capsule 600 mg PO QAM RF: 0 cholecalciferol (vitamin D3) [Vitamin D3] 125 mcg (5,000 unit) Tablet 125 mcg PO QAM RF: 0 coQ10 (ubiquinol) 200 mg Capsule 200 mg PO QAM RF: 0 turmeric-herbal complex no.[id number] 150 mg Capsule 1 cap PO QAM RF: 0 Cholesterol Plus 1,800 mg PO QAM RF: 0 diclofenac sodium 1 % Gel 2 g TOPICAL QID PRN (Reason: Pain) RF: 0 docusate calcium [Stool Softener (docusate breezy)] 240 mg Capsule 240 mg PO BID RF: 0 Discharge Orders: Discharge Order (Routine); Ordered 05/01/20 Ordered By: Daniel Craig/Other Patient Handouts: Preventing Deep Vein Thrombosis Admission Data Admit Date/Time: 04/29/20 10:48 Attending Provider: Daniel Chaves Admit Provider: Daniel Chaves Primary Care Provider: Neftali Driver Other Providers: Annette Martinez ; Hermelinda Coker I. Other Interventions: Discharge Summary Assessment (RN) Last Done: 05/01/20 09:51
== END 2020-05-01 15:29 | disposition home or self-care (01) | DRG 454 ==
LOC: ASU 06:42 → 3E 10:48